=== PATIENT | male | born 1970 | race Two or more races ===

== ENCOUNTER → 2019-06-20 | Emergency (ER) | payer OTHER ==
[~2019-06-20] VITALS: Ht 170.2 cm; Wt 104.3 kg
[~2019-06-20] MED LIST: CALCIUM CARB 500 MG CHEW TAB PO ONE; HYDROcodone-ACET 10/325MG TAB PO ONE; HYDROmorphone HCL 2 MG/ML VL IV ONE; ONDANSETRON HCL 4 MG/2 ML VIAL IV ONE; ONDANSETRON ODT 4 MG TAB PO ONE; TETANUS-DIPTH-ACEL PERTUSSIS 0.5ML SYR Tdap IM ONE; cefTRIAXone 1GM/50ML D5W 50 ML IV ONE
[2019-06-21 02:00] VITALS: BP 121/83
== END | disposition home or self-care (01) ==
LOC: ER 21:00
DX: S92.401A Displaced unspecified fracture of right great toe, initial encounter for closed fracture (principal); S01.112A Laceration without foreign body of left eyelid and periocular area, initial encounter; S16.1XXA Strain of muscle, fascia and tendon at neck level, initial encounter; S93.401A Sprain of unspecified ligament of right ankle, initial encounter; W19.XXXA Unspecified fall, initial encounter; Y93.89 Activity, other specified; Y92.89 Other specified places as the place of occurrence of the external cause; Y99.8 Other external cause status
CPT/HCPCS: 70450; 70486; 71045; 72125; 73130; 73562; 73590; 73630; 90471; 90715; 96365; 96375; 99285; J0696; J1170; J2405; Q0162